=== PATIENT | male | born 1985 | race Caucasian/White ===

== ENCOUNTER → 2016-07-27 | Outpatient (CLI) | payer OTHER | LOC: FIMAGING 17:58 | PROVIDERS: ATTEND Family Medicine | DX: M23.303 Other meniscus derangements, unspecified medial meniscus, right knee (principal); M24.10 Other articular cartilage disorders, unspecified site; M23.611 Other spontaneous disruption of anterior cruciate ligament of right knee; M25.461 Effusion, right knee; M23.41 Loose body in knee, right knee; M71.21 Synovial cyst of popliteal space [Baker], right knee ==